=== PATIENT | male | born 1960 | race Caucasian/White ===

== ENCOUNTER 2019-10-09 18:14 | Emergency (ER) | payer BC ==
--- OUTSIDE RECORDS SUMMARY | 2019-10-09 18:31 | XMS REPORT | Continuity of Care Document ---
:1960 External Reference #:[id number] Author Name Ant Frias M.D. (transmitted by agent of provider Shanell Randhawa) Address [address] [place] [address] Care Team Providers Name Role Phone Todd Cisnerospan STOCK LETTERER - Family Care Team Information Ambulatory Care Coordinator [phone] Problems Active Problems Provider Date Gouty arthropathy Claudio Florentino M.D. Onset: 09/03/2014 Social History Type Date Description Comments Sex Unknown Tobacco Use Start: Unknown Never Smoked Cigarettes Smoking Status Reviewed: 10/03/19 Never Smoked Cigarettes ETOH Use Currently consumes 2-3 beers daily alcohol Tobacco Use Start: Unknown Patient has never smoked Recreational Drug Use Denies Drug Use Exercise Type/Frequency Exercises sporadically dancing Allergies, Adverse Reactions, Alerts Description No Known Drug Allergies Medications Active Medications SIG Qnty Indications Ordering Provider Date Metoprolol Tartrate 1 by mouth twice Unknown 08/22/2017 a day 50mg Tablets Viagra 1 by mouth as Unknown 08/22/2017 50mg Tablets needed Vitamin B Complex 1 by mouth every Unknown 08/22/2017 day Tablets Vitamin C 2 tab daily Unknown 03/15/2017 500mg Tablets ER Allopurinol 1 by mouth 30tabs 274.00 Juwanoficarole Juarez, 11/27/2014 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 Tablets V58.69 274.9 Lisinopril 10mg 1 by mouth every day 30tabs Unknown Tablets Vitamin D High Potency 1 by mouth every day Unknown 1000Unit Capsules Aspir-81 81mg 1 by mouth every day Unknown Tablets DR Irving Description No Information Available Vital Signs Date Vital Result Comment 10/03/2019 8:51am Height 68 inches 5'8" Weight 205.25 lb with shoes/jacket Heart Rate 62 /min radial,regular BP Systolic Sitting 128 mmHg LA,reg cuff BP Diastolic Sitting 86 mmHg LA,reg cuff BP Systolic Standing 124 mmHg LA,reg cuff BP Diastolic Standing 82 mmHg LA,reg cuff BMI (Body Mass Index) 31.2 kg/m2 Ejection Fraction 50%-55% echo 01/05/19 12/13/2018 9:04am Height 68 inches 5'8" Weight 203.75 lb with shoes Heart Rate 68 /min BP Systolic Sitting 118 mmHg Left arm BP Diastolic Sitting 80 mmHg Left arm BMI (Body Mass Index) 31.0 kg/m2 Ejection Fraction 50-55% Echocardiogram 04/22/18 Results Description No Information Available Procedures Date Code Description Status 10/03/2019 77189 EKG Tracing & Interpretation Completed Medical Devices Description No Information Available Encounters Description No Information Available Assessments Date Code Description Provider 10/03/2019 Z95.2 Presence of prosthetic heart valve Ant Frias M.D. 10/03/2019 I10 Essential (primary) hypertension Ant Frias M.D. 10/03/2019 Q25.1 Coarctation of aorta Ant Frias M.D. 10/03/2019 I45.10 Unspecified right bundle-branch block Ant Frias M.D. 10/03/2019 R06.02 Shortness of breath Ant Frias M.D. 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
[2019-10-09 21:29] LABS: ABS Eosinophils 0.1 10^3/ul (0-0.6); ABS Monocytes 0.6 10^3/ul (0-0.8); ABS Neutrophils 3.8 10^3/ul (1.5-7.7); Eosinophil % 2.2 %; Hematocrit 40 % (42-52); Hemoglobin 13.6 g/dL (14.0-18.0); Lymphocyte % 30.3 %; Mean Corpuscular HGB Conc 34 g/dL (31-36); Mean Corpuscular Hemoglobin 33 pg (27-31); Mean Corpuscular Volume 98 fL (80-94); Nucleated Red Blood Cells % 0.1; Platelet Count 232 10^3/uL (150-450); Red Blood Count 4.07 10^6 /uL (4.18-5.48); Red Cell Distribution Width 13 % (10-15); White Blood Count 6.6 10^3/uL (3.5-10.8)
[2019-10-09 21:47] LABS: Albumin 4.4 g/dL (3.2-5.2); Albumin/Globulin Ratio 1.5 (1-3); BUN/Creatinine Ratio 17.3 (8-20); Calcium 10.8 mg/dL (8.6-10.3); EGFR Non-African American 106.6 (>60); Potassium 4.2 mmol/L (3.5-5.0); Total Bilirubin 0.8 mg/dL (0.2-1.0); Total Protein 7.4 g/dL (6.4-8.9)
--- NOTE | 2019-10-09 22:28 | ED ---
Hypertension - HPI Summary HPI Summary: Patient complains of elevated blood pressure at home up to 173/100. 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 Steven in [place]. States aneurysm is of nonoperable size, however he has been told not to allow his blood pressure over 150 SBP. Patient normally takes metoprolol 50 mg twice a day and 10 mg lisinopril daily in the a.m. Patient states he took a second lisinopril at 4:30 PM when he took a second metoprolol. Complains only of mild headache. Denies fever, cough, sore throat, CP, SOB, N /3/D, abdominal pain, change in urine, change in BM. Blood pressure within normal range by time of history of present illness. - History of Current Complaint Chief Complaint: EDHypertension Stated Complaint: HIGH BLOOD PRESSURE PER PT Hx Obtained From: Patient Onset/Duration: Started Hours Ago Timing: Constant Aggravating Factor(s): Nothing Alleviating Factor(s): Nothing Associated Signs & Symptoms: Negative - Allergies/Home Medications Allergies/Adverse Reactions: Allergies Allergy/AdvReac Type Severity Reaction Status Date / Time No Known Allergies Allergy Verified 02/12/16 12:44 Home Medications: Home Medications Metoprolol Tartrate TAB* [Lopressor TAB*] 50 mg PO DAILY 10/09/19 [History Confirmed 10/09/19] PMH/Surg Hx/FS Hx/Imm Hx Endocrine/Hematology History: Denies: Hx Diabetes Cardiovascular History: Reports: Hx Hypertension, Other Cardiovascular Problems/ Disorders - COARCTICATION OF AORTA REPAIR 1977 History: Denies: Hx Dialysis, Hx Renal Disease Musculoskeletal History: Reports: Other Musculoskeletal History - GOUT Sensory History: Reports: Hx Cataracts - BILAT, Hx Contacts or Glasses - GLASSES Denies: Hx Hearing Aid Opthamlomology History: Reports: Hx Cataracts - BILAT, Hx Contacts or Glasses - GLASSES EENT History: Denies: Hx Deafness Neurological History: Denies: Hx Dementia - Surgical History Surgery Procedure, Year, and Place: HERNIA REPAIR A CHILD. COARCTICATION OF AORTA REPAIR 1977 Hx Anesthesia Reactions: No - PT STATES WAS DIFF TO "GO UNDER" Infectious Disease History: No Infectious Disease History: Denies: Traveled Outside the [place] in Last 30 Days - Family History Known Family History: Positive: Non-Contributory - Social History Alcohol Use: Daily Alcohol Amount: 2-3/DAY Substance Use Type: Reports: None Smoking Status (MU): Never Smoked Tobacco Review of Systems Constitutional: Negative Eyes: Negative ENT: Negative Cardiovascular: Negative Respiratory: Negative Gastrointestinal: Negative Genitourinary: Negative Musculoskeletal: Negative Skin: Negative Positive: Headache Psychological: Normal All Other Systems Reviewed And Are Negative: Yes Physical Exam Triage Information Reviewed: Yes Vital Signs On Initial Exam: Initial Vitals Temp Pulse Resp BP Pulse Ox 98.4 F 67 16 177/98 100 10/09/19 18:17 10/09/19 18:17 10/09/19 18:17 10/09/19 18:17 10/09/19 18:17 Vital Signs Reviewed: Yes Appearance: Positive: Well-Appearing Skin: Positive: Warm Head/Face: Positive: Normal Head/Face Inspection Eyes: Positive: Normal Neck: Positive: Supple Respiratory/Lung Sounds: Positive: Clear to Auscultation Cardiovascular: Positive: Normal Abdomen Description: Positive: Nontender Musculoskeletal: Positive: Normal Neurological: Positive: Normal Psychiatric: Positive: Normal AVPU Assessment: Alert - Matilda Coma Scale Best Eye Response: 4 - Spontaneous Best Motor Response: 6 - Obeys Commands Best Verbal Response: 5 - Oriented Coma Scale Total: 15 Procedures - Sedation Patient Received Moderate/Deep Sedation with Procedure: No Diagnostics - Vital Signs Vital Signs Temp Pulse Resp BP Pulse Ox 10/09/19 21:53 74 22 98 10/09/19 21:50 75 21 121/72 97 10/09/19 18:17 98.4 F 67 16 177/98 100 - Laboratory Lab Results: Lab Results 10/09/19 10/09/19 10/09/19 Range/Units 21:20 21:20 21:20 WBC 6.6 (3.5-10.8) 10^3/uL RBC 4.07 L (4.18-5.48) 10^6 /uL Hgb 13.6 L (14.0-18.0) g/dL Hct 40 L (42-52) % MCV 98 H (80-94) fL MCH 33 H (27-31) pg MCHC 34 (31-36) g/dL RDW 13 (10-15) % Plt Count 232 (150-450) 10^3/uL MPV 7.0 L (7.4-10.4) fL Neut % (Auto) 58.1 % Lymph % (Auto) 30.3 % [place] % (Auto) 8.7 % Eos % (Auto) 2.2 % Baso % (Auto) 0.7 % Absolute Neuts (auto) 3.8 (1.5-7.7) 10^3/ul Absolute Lymphs (auto) 2.0 (1.0-4.8) 10^3/ul Absolute Monos (auto) 0.6 (0-0.8) 10^3/ul Absolute Eos (auto) 0.1 (0-0.6) 10^3/ul Absolute Basos (auto) 0.0 (0-0.2) 10^3/ul Absolute Nucleated RBC 0.0 10^3/ul Nucleated RBC % 0.1 Sodium 135 (135-145) mmol/L Potassium 4.2 (3.5-5.0) mmol/L Chloride 100 L (101-111) mmol/L Carbon Dioxide 28 (22-32) mmol/L Anion Gap 7 (2-11) mmol/L BUN 13 (6-24) mg/dL Creatinine 0.75 (0.67-1.17) mg/dL Est GFR ( Amer) 129.0 (>60) Est GFR (Non-Af Amer) 106.6 (>60) BUN/Creatinine Ratio 17.3 (8-20) Glucose 94 (70-100) mg/dL Lactic Acid 0.7 (0.5-2.0) mmol/L Calcium 10.8 H (8.6-10.3) mg/dL Total Bilirubin 0.80 (0.2-1.0) mg/dL AST 27 (13-39) U/L ALT 26 (7-52) U/L Alkaline Phosphatase 102 (34-104) U/L Total Protein 7.4 (6.4-8.9) g/dL Albumin 4.4 (3.2-5.2) g/dL Globulin 3.0 (2-4) g/dL Albumin/Globulin Ratio 1.5 (1-3) Result Diagrams: 10/09/19 21:20 10/09/19 21:20 Lab Statement: Any lab studies that have been ordered have been reviewed, and results considered in the medical decision making process. Hypertension Course/Dx - Course Course Of Treatment: Patient complains of elevated blood pressure at home up to 173/100. 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 Steven in [place]. States aneurysm is of nonoperable size , however he has been told not to allow his blood pressure over 150 SBP. Patient normally takes metoprolol 50 mg twice a day and 10 mg lisinopril daily in the a.m. Patient states he took a second lisinopril at 4:30 PM when he took a second metoprolol. Complains only of mild headache. Denies fever, cough, sore throat, CP, SOB, N/3/D, abdominal pain, change in urine, change in BM. Blood pressure within normal range by time of history of present illness. Vital signs within normal limits. Normal blood pressure at time of evaluation. No active symptoms. Patient discharged to follow-up with business development representative Dr. Frias - Diagnoses Provider Diagnoses: Hypertension Discharge ED - Sign-Out/Discharge Documenting (check all that apply): Patient Departure - Discharge Plan Condition: Stable Disposition: HOME Patient Education Materials: Hypertension (ED) Referrals: Tori Cisneros NP [Primary Care Provider] - Ant Frias MD [Medical Doctor] - Additional Instructions: Follow-up with your primary care Dr Cisneros. Follow-up with her business development representative for further evaluation of elevated blood pressure. Return to the ED for any new or worsening symptoms. - Billing Disposition and Condition Condition: STABLE Disposition: Home
[2019-10-09 22:30] VITALS: BP 126/75
== END 2019-10-09 22:37 | disposition home or self-care (01) ==
LOC: ED 18:14
DX: I10 Essential (primary) hypertension (principal); I71.9 Aortic aneurysm of unspecified site, without rupture
CPT/HCPCS: 36415; 80053; 83605; 85025; 93005; 99282

== ENCOUNTER 2020-05-16 07:23 | Observation (INO) ==
[2020-05-16 08:51] LABS: ABS Eosinophils 0.2 10^3/ul (0-0.6); ABS Lymphocytes 1.7 10^3/ul (1.0-4.8); ABS Monocytes 0.5 10^3/ul (0-0.8); Eosinophil % 3.7 %; Hematocrit 38 % (42-52); Hemoglobin 13.5 g/dL (14.0-18.0); Lymphocyte % 27.5 %; Mean Corpuscular HGB Conc 36 g/dL (31-36); Mean Corpuscular Hemoglobin 35 pg (27-31); Mean Corpuscular Volume 97 fL (80-94); Mean Platelet Volume 7.1 fL (7.4-10.4); Nucleated Red Blood Cells % 0.1; Platelet Count 210 10^3/uL (150-450); Red Blood Count 3.88 10^6 /uL (4.18-5.48); Red Cell Distribution Width 12 % (10-15)
[2020-05-16 09:00] LABS: ALT 21 U/L (7-52); AST 20 U/L (13-39); Albumin 4.3 g/dL (3.2-5.2); Albumin/Globulin Ratio 1.6 (1-3); Alkaline Phosphatase 115 U/L (34-104); Anion Gap 6 mmol/L (2-11); BUN/Creatinine Ratio 13.7 (8-20); Blood Urea Nitrogen 10 mg/dL (6-24); CO2 Carbon Dioxide 25 mmol/L (22-32); Calcium 10.3 mg/dL (8.6-10.3); Chloride 104 mmol/L (101-111); EGFR African American 132.6 (>60); EGFR Non-African American 109.6 (>60); Globulin 2.7 g/dL (2-4); Glucose 109 mg/dL (70-100); Magnesium 1.7 mg/dL (1.9-2.7); Potassium 4.5 mmol/L (3.5-5.0); Sodium 135 mmol/L (135-145)
[2020-05-16 09:05] LABS: Troponin I 0.05 ng/mL (<0.03)
[2020-05-16] MEDS ORDERED: Iohexol 350 (CONTRAST) 500 ML MDV IV ONE (09:15)
[2020-05-16 09:52] LABS: TSH (Thyroid Stimulating Horm) 1.73 mcIU/mL (0.34-5.60)
[2020-05-16] MEDS ORDERED: Enoxaparin 40 MG/0.4 ML SYR(*) SUBCUT SCH ×2 (13:00→22:00)
[2020-05-16] MEDS ORDERED: Magnesium Sulfate 2 gm BAG 2 GM/50 ML BAG IVPB ONE (13:22)
[2020-05-16 15:12] LABS: Troponin I 0.11 ng/mL (<0.03)
[2020-05-16 18:34] LABS: Troponin I 0.09 ng/mL (<0.03)
[2020-05-16 22:24] LABS: Troponin I 0.08 ng/mL (<0.03)
[2020-05-17 05:37] LABS: ABS Eosinophils 0.3 10^3/ul (0-0.6); ABS Lymphocytes 1.8 10^3/ul (1.0-4.8); ABS Monocytes 0.5 10^3/ul (0-0.8); Eosinophil % 6.1 %; Hematocrit 36 % (42-52); Hemoglobin 12.9 g/dL (14.0-18.0); Lymphocyte % 33.6 %; Mean Corpuscular HGB Conc 36 g/dL (31-36); Mean Corpuscular Hemoglobin 35 pg (27-31); Mean Corpuscular Volume 98 fL (80-94); Mean Platelet Volume 6.9 fL (7.4-10.4); Nucleated Red Blood Cells % 0.1; Platelet Count 195 10^3/uL (150-450); Red Blood Count 3.71 10^6 /uL (4.18-5.48); Red Cell Distribution Width 13 % (10-15); White Blood Count 5.3 10^3/uL (3.5-10.8)
[2020-05-17 05:51] LABS: BUN/Creatinine Ratio 13.8 (8-20); Calcium 9.8 mg/dL (8.6-10.3); EGFR African American 119.3 (>60); EGFR Non-African American 98.6 (>60); HDL Cholesterol 57.4 mg/dL; Magnesium 1.9 mg/dL (1.9-2.7); Potassium 4.1 mmol/L (3.5-5.0)
[2020-05-17] MEDS ORDERED: Perflutren Lipid Microsphere 3 ML VIAL ONE (08:05)
[2020-05-17] MEDS ORDERED: Aspirin EC 81 mg TAB.EC (enteric coated) PO SCH (09:00)
[2020-05-17 12:09] VITALS: BP 121/76
== END 2020-05-17 13:30 | disposition home or self-care (01) ==
LOC: MEDTELE 07:23 → ED 07:23 → MEDTELE 15:35
PROVIDERS: ADMIT Internal Medicine; ATTEND Internal Medicine